=== PATIENT | male | born 1990 | race African-American/Black ===

== ENCOUNTER 2017-12-28 12:01 | Emergency (ER) | payer OTHER, MEDICAID ==
[~2017-12-28] VITALS: Ht 170.2 cm; Wt 76.0 kg
[2017-12-28] MEDS ORDERED: LORAZEPAM 0.5MG TABLET PO ONE (13:00)
[2017-12-28 14:57] VITALS: BP 125/76
== END 2017-12-28 15:03 | disposition home or self-care (01) ==
LOC: ER 12:22
DX: R07.9 Chest pain, unspecified (principal); F41.9 Anxiety disorder, unspecified; R06.00 Dyspnea, unspecified; F43.10 Post-traumatic stress disorder, unspecified; F12.10 Cannabis abuse, uncomplicated; Y04.0XXA Assault by unarmed brawl or fight, initial encounter; Y93.89 Activity, other specified; Y92.488 Other paved roadways as the place of occurrence of the external cause
CPT/HCPCS: 71045; 93005; 99284